=== PATIENT | male | born 1960 | race Asian ===

== ENCOUNTER 2019-07-17 14:08 | Emergency (ER) | payer OTHER ==
[2019-07-17 14:16] VITALS: BP 145/82; PULSE 87; TEMP 97.5
--- NOTE | 2019-07-17 14:20 | PDOC ---
Rapid Medical Evaluation Time Seen by Provider: 07/17/19 14:11 Medical Evaluation: Allergies Allergy/AdvReac Type Severity Reaction Status Date / Time No Known Allergies Allergy Verified 07/17/19 14:11 07/17/19 14:15 HPI: The patient is a 58 y/o male with history of diabetes who presents with chest congestion, chills, and temperature of to 99.2 orally x 7 days. The patient has no exposure to coronavirus. - Recent travel. They are concerned they have coronavirus and present for testing. - difficulty breathing, shortness of breath, chest pain, lightheadedness, dizziness nausea, vomiting, and diarrhea. Other 12 point ROS reviewed and negative. EXAM: General: NAD, well-appearing, AAO x3. vss ENT: No rhinorrhea or nasal congestion. Neck: FROM, no midline tenderness Lungs: Clear to auscultation bilateral without wheezes rales or rhonchi. Normal excursion. Patient is able to speak in full sentences. Heart: Regular rate and rhythm, S1-S2 present, no murmurs rubs or gallops. Abdomen: Non-distended MSK/Extremities: no decreased ROM, no obvious deformities. No cyanosis Neuro: Normal gait, cranial nerves II through XII grossly intact. SKIN: No rashes, bruising. Color normal appearing A/P: Chest congestion Patient has hx of diabetes, denies recent travel and known COVID exposure. Patient does not meet criteria for testing at this time. CXR ordered We will refer the patient to outpatient testing clinics in the [facility] for further monitoring of their symptoms. Discharge Disposition - Diagnosis Chest congestion - Discharge Dispostion Disposition: HOME Condition at time of disposition: Good - Referrals - Patient Instructions Printed Discharge Instructions: [facility]-Coronavirus Instructions Additional Instructions: please follow up with your physician - Post Discharge Activity
== END 2019-07-17 15:45 | disposition home or self-care (01) ==
LOC: JER 14:08
DX: R09.89 Other specified symptoms and signs involving the circulatory and respiratory systems (principal)
CPT/HCPCS: 71045-TC-FY; 99283-25

== ENCOUNTER 2021-02-16 05:00 | Day surgery (SDC) | payer OTHER ==
[2021-02-15 09:51] VITALS: BMI 23.6
[2021-02-16 13:08] VITALS: TEMP 97.3
[2021-02-16 13:41] VITALS: BP 140/72; PULSE 55
== END 2021-02-16 13:48 | disposition home or self-care (01) ==
LOC: JASU-ENDO 05:00
PROVIDERS: ATTEND Internal Medicine Gastroenterology
PROC: 0DB68ZX Excision of Stomach, Via Natural or Artificial Opening Endoscopic, Diagnostic (ICD-10-PCS; 2021-02-16)
PROC: 0DBH8ZX Excision of Cecum, Via Natural or Artificial Opening Endoscopic, Diagnostic (ICD-10-PCS; principal; 2021-02-16 12:30)
DX: Z12.11 Encounter for screening for malignant neoplasm of colon (principal); D12.0 Benign neoplasm of cecum; K64.8 Other hemorrhoids; E11.9 Type 2 diabetes mellitus without complications; I10 Essential (primary) hypertension; K29.70 Gastritis, unspecified, without bleeding; Z80.0 Family history of malignant neoplasm of digestive organs
CPT/HCPCS: 82962; 88305-TC; 88342-TC

== ENCOUNTER 2021-08-03 04:04 | Day surgery (SDC) | payer OTHER ==
[2021-07-31 16:21] VITALS: BMI 22.5
[2021-08-03] MEDS ORDERED: GLYCOPYRROLATE 0.2 MG/1 ML VIAL ONE (10:50)
[2021-08-03] MEDS ORDERED: PROPOFOL 20 ML ONE ×4 (11:37→11:40)
[2021-08-03] MEDS ORDERED: LACTATED RINGERS SOLUTION 1,000 ML IV SCH (12:30)
[2021-08-03 14:56] VITALS: BP 160/86; PULSE 62; TEMP 97.8
== END 2021-08-03 14:15 | disposition home or self-care (01) ==
LOC: JASU-SURG 04:04
PROVIDERS: ATTEND Otolaryngology
PROC: 0DJ08ZZ Inspection of Upper Intestinal Tract, Via Natural or Artificial Opening Endoscopic (ICD-10-PCS; principal; 2021-08-03 10:30)
DX: G47.33 Obstructive sleep apnea (adult) (pediatric) (principal); E11.9 Type 2 diabetes mellitus without complications; I10 Essential (primary) hypertension
CPT/HCPCS: 82962; 94760